=== PATIENT | female | born 1960 ===

== ENCOUNTER 2017-06-01 18:28 | Observation (INO) | payer OTHER ==
--- NOTE | 2017-06-01 18:43 | ED PDOC ---
Arrival/HPI - General Time Seen by Provider: 06/01/17 18:34 Historian: Patient - History of Present Illness Narrative History of Present Illness (Text): 06/01/17 18:41 56 y/o female, pmh including htn, psychiatric history including anxiety, nkda, post menopausal, c/o feeling chest pain/palpitation/difficulty breathing and anxious x 45 minutes. Pt. stated that she was at home watching TV, suddenly feeling anxious with chest pain/palpitation and very nervous, called the ambulance and came to the ER for evaluation. Pt. has no night sweat, no rash, no dizziness, no change in vision, no numbness or tingling, no palpitation, no other medical or psychological complaints. Past Medical History - Provider Review Nursing Documentation Reviewed: Yes Family/Social History - Physician Review Nursing Documentation Reviewed: Yes Family/Social History: Unknown Family HX Allergies/Home Meds Allergies/Adverse Reactions: Allergies No Known Allergies Allergy (Verified 06/01/17 18:47) Home Medications: Home Meds Medication Instructions Recorded Confirmed Losartan [Cozaar] 25 mg PO DAILY 06/01/17 06/01/17 Review of Systems - Review of Systems Constitutional: absent: Fatigue, Fevers Eyes: absent: Vision Changes ENT: absent: Hearing Changes Respiratory: absent: SOB, Cough Cardiovascular: absent: Chest Pain Gastrointestinal: absent: Abdominal Pain, Nausea, Vomiting Musculoskeletal: absent: Arthralgias, Myalgias Skin: absent: Rash, Pruritis Psychiatric: Anxiety. absent: Depression, Suicidal Ideation Physical Exam Vital Signs Temp Pulse Resp BP Pulse Ox 06/01/17 21:06 71 18 126/72 100 06/01/17 20:19 87 19 114/77 100 06/01/17 18:45 98.3 F 104 H 15 146/87 100 - Systems Exam Head: Present: Atraumatic, Normocephalic Pupils: Present: PERRL Extroacular Muscles: Present: EOMI Conjunctiva: Present: Normal Mouth: Present: Moist Mucous Membranes Neck: Present: Normal Range of Motion Respiratory/Chest: Present: Clear to Auscultation, Good Air Exchange. No: Respiratory Distress, Accessory Muscle Use Cardiovascular: Present: Regular Rate and Rhythm, Normal S1, S2. No: Murmurs Abdomen: Present: Normal Bowel Sounds. No: Tenderness, Distention, Peritoneal Signs Back: Present: Normal Inspection Upper Extremity: Present: Normal Inspection. No: Cyanosis, Edema Lower Extremity: Present: Normal Inspection. No: Edema Neurological: Present: GCS=15, Speech Normal, Motor Func Grossly Intact, Gait Normal, Memory Normal Skin: Present: Warm, Dry, Normal Color. No: Rashes Psychiatric: Present: Alert, Oriented x 3, Anxious Medical Decision Making ED Course and Treatment: 06/01/17 18:43 -labs/thyroid -ekg -chest xray -IVF/ativan/aspirin -Observe and reassess 06/01/17 20:14 -HEART score of 4 (moderate) -EKG: NSR @ 90 BPM, no ST elevation or depression, T wave inversion noted on the lead II/III/aVF, no previous ekg available for comparison. -Chest xray wet read show no active disease -Labs show no acute findings except K+ 3.4 (potassium chloride 20meq po ordered) . -Thyroid profile show no signs of thyroid storm. -Troponin 1st set is negative -I can not rule out if this is anxiety vs. ACS as she has HEART score of 4 with risk factors along with ACS presenting signs/symptoms, she will need to be admitted for 24 hours troponin set. -I discussed with the patient and she agreed on the observation over night. -Dr. Dennis paged. 06/01/17 20:23 -I spoke to Dr. Merlos, covering for Dr. Dennis, discussed about the case/labs /radiology result, agreed to observation for [address] Dennis's service. -I discussed with Dr. Morales about the case/labs/radiology result, he will put in the observation tele order for the patient. - Lab Interpretations Lab Results: 06/01/17 19:20 06/01/17 19:20 Lab Results 06/01/17 19:20: WBC 5.8, RBC 4.94, Hgb 14.3, Hct 42.2, MCV 85.4, MCH 28.9, MCHC 33.9, RDW 13.1, Plt Count 193, MPV 11.7 H, Gran % 52.5, Lymph % (Auto) 37.6 H, Kershaw % (Auto) 8.9 H, Eos % (Auto) 0.7 L, Baso % (Auto) 0.3, Gran # 3.05, Lymph # 2.2, Kershaw # 0.5, Eos # 0.0, Baso # 0.02 06/01/17 19:20: Free T4 0.68 L, TSH 3rd Generation 2.29 06/01/17 19:20: Sodium 141, Potassium 3.4 L, Chloride 100, Carbon Dioxide 27, Anion Gap 17, BUN 11, Creatinine 0.9, Est GFR ( Amer) > 60, Est GFR (Non- Af Amer) > 60, Random Glucose 144 H, Calcium 9.5, Magnesium 2.0, Total Bilirubin 0.4, AST 29, ALT 27, Alkaline Phosphatase 74, Lactate Dehydrogenase 467, Total Creatine Kinase 85, Troponin I < 0.01, Total Protein 8.4 H, Albumin 4.6, Globulin 3.9, Albumin/Globulin Ratio 1.2 Interpretation: Abnormal lab values (K+ 3.4) - RAD Interpretation Radiology Orders: 06/01/17 18:54 CHEST PORTABLE [RAD] Stat no active disease Photoengraving Proofer: Radiologist - EKG Interpretation EKG Interpretation (Text): 06/01/17 19:12 -EKG: NSR @ 90 BPM, no ST elevation or depression, T wave inversion noted on the lead II/III/aVF, no previous ekg available for comparison. Interpreted by ED Physician: Yes Type: 12 lead EKG Comparison: No previous EKG avail. - Medication Orders Current Medication Orders: Alprazolam (Xanax) 0.25 mg PO TID PRN PRN Reason: Anxiety Stop: 06/09/17 07:41 Discontinued Medications Alprazolam (Xanax) 0.25 mg PO TID PRN; Protocol PRN Reason: Anxiety Aspirin (Aspirin) 325 mg PO STAT STA Stop: 06/01/17 19:19 Last Admin: 06/01/17 19:15 Dose: 325 mg Sodium Chloride (Sodium Chloride 0.9%) 1,000 mls @ 999 mls/hr IV .Q1H1M STA Stop: 06/01/17 20:15 Last Admin: 06/01/17 19:58 Dose: 999 mls/hr eMAR Start Stop Document 06/01/17 19:58 RD (Rec: 06/01/17 19:58 RD [id number]) Intravenous Solution Start Date 06/01/17 Start Time 19:58 End Date 06/01/17 End time 20:58 Total Infusion Time 60 Lorazepam (Ativan) 1 mg IVP ONCE ONE PRN Reason: Protocol Stop: 06/01/17 19:16 Last Admin: 06/01/17 19:35 Dose: 1 mg IVP Administration Document 06/01/17 19:35 RD (Rec: 06/01/17 19:59 RD [id number]) Charges for Administration # of IVP Administrations 1 Re-Assess: Reassess Psych Meds Document 06/01/17 20:05 FDE (Rec: 06/01/17 22:46 FDE [facility] [id number]) Reassess Psych Med Effective Potassium Chloride (K-Dur 20 Meq Er Tab) 20 meq PO STAT STA Stop: 06/01/17 19:52 Last Admin: 06/01/17 20:28 Dose: 20 meq Potassium Chloride (K-Dur 20 Meq Er Tab) 20 meq PO ONCE ONE Stop: 06/02/17 07:37 - PA / [employer] / Resident Statement MD/DO has reviewed & agrees with the documentation as recorded. Disposition/Present on Arrival - Present on Arrival Any Indicators Present on Arrival: No History of DVT/PE: No History of Uncontrolled Diabetes: No Urinary Catheter: No History of Decub. Ulcer: No - Disposition Have Diagnosis and Disposition been Completed?: Yes Diagnosis: Chest pain, Abnormal EKG Disposition: HOSPITALIZED Disposition Time: 20:15 Patient Plan: Observation, Telemetry Patient Problems: Current Active Problems Problem Status Onset Chest pain Acute Abnormal EKG Acute Condition: STABLE
[2017-06-01] MEDS ORDERED: Sodium Chloride 0.9% 1,000 ML IV STA (19:15)
[2017-06-01 19:37] LABS: BASO # 0.02 K/mm3 (0.0-2.0); BASO % 0.3 % (0.0-3.0); EOS % 0.7 % (1.5-5.0); GRAN # 3.05 (1.4-6.5); GRAN % 52.5 % (50.0-68.0); HEMATOCRIT 42.2 % (36.0-48.0); LYMPH # 2.2 (1.2-3.4); LYMPH % 37.6 % (22.0-35.0); MEAN CELL VOLUME 85.4 fl (80.0-105.0); MEAN CORPUSCULAR HEMOGLOBIN 28.9 pg (25.0-35.0); MEAN CORPUSCULAR HGB CONC 33.9 g/dl (31.0-37.0); MEAN PLATELET VOLUME 11.7 fl (7.0-11.0); MONO # 0.5 (0.1-0.6); MONO % 8.9 % (1.0-6.0); RED CELL DISTRIBUTION WIDTH 13.1 % (11.5-14.5); WHITE BLOOD COUNT 5.8 10^3/ul (4.5-11.0)
[2017-06-01 19:47] LABS: ALB/GLOB RATIO 1.2 (1.1-1.8); ALKALINE PHOSPHATASE 74 U/L (38-126); ALT/SGPT 27 U/L (7-56); AST/SGOT 29 U/L (14-36); BILIRUBIN,TOTAL 0.4 mg/dL (0.2-1.3); BLOOD UREA NITROGEN 11 mg/dL (7-21); CALCIUM 9.5 mg/dL (8.4-10.5); CARBON DIOXIDE 27 mmol/L (21-33); CHLORIDE 100 mmol/L (98-107); GFR AFRICAN-AMERICAN > 60; GLUCOSE,RANDOM 144 mg/dL (70-110); POTASSIUM 3.4 mmol/L (3.6-5.0); SODIUM 141 mmol/L (132-148); TOTAL PROTEIN 8.4 g/dL (5.8-8.3)
[2017-06-01] MEDS ORDERED: Potassium Chloride 20 mEq ER Tab PO STA (19:51)
[2017-06-01 20:04] LABS: TROPONIN I < 0.01 ng/mL
[2017-06-01 20:13] LABS: FREE T4 0.68 ng/dL (0.78-2.19)
[2017-06-01 20:27] LABS: THYROID STIMULATING HORMONE 2.29 mIU/mL (0.46-4.68)
[2017-06-01 21:50] VITALS: BMI 20.1
[2017-06-02 05:38] VITALS: O2SAT 100
[2017-06-02] MEDS ORDERED: Potassium Chloride 20 mEq ER Tab PO ONE (07:36)
--- NOTE | 2017-06-02 07:59 | RAD ---
HISTORY: medical clearance COMPARISON: None. FINDINGS: LUNGS: No active pulmonary disease. PLEURA: No significant pleural effusion identified, no pneumothorax apparent. CARDIOVASCULAR: Normal. OSSEOUS STRUCTURES: No significant abnormalities. VISUALIZED UPPER ABDOMEN: Normal. OTHER FINDINGS: None. IMPRESSION: No active disease. Concordant results with the preliminary interpretation rendered by the emergency department physician procedure.
--- NOTE | 2017-06-02 14:03 | CARD ---
APPROVED REPORT EKG Measurement Heart [id number] <Conclusion> Normal sinus rhythm ST & T wave abnormality, consider inferior ischemia Abnormal ECG
--- NOTE | 2017-06-02 14:08 | HP ---
HISTORY OF PRESENT ILLNESS: I saw her this morning in her bed. She slept fairly well. She is very anxious. She is a 56-year-old female who presents to the emergency room at 45 minutes of having difficulty breathing and anxiety with palpitations and chest pain. She was watching TV at home, suddenly the feeling came upon her, anxiety with chest pain, palpitations, very nervous, called the ambulance, came to the emergency room. No night sweats. No rashes, no dizziness. No vision changes. PAST MEDICAL HISTORY: Includes hypertension, anxiety. She has had this before, but ignored. At this time ,she is very worried. ALLERGIES: SHE HAS NO KNOWN DRUG ALLERGIES. FAMILY HISTORY: She has unknown family history. MEDICATIONS: She takes Cozaar for possible hypertension. REVIEW OF SYSTEMS: No acute vision or hearing changes. No sore throat. She is not tired. No neck pain. There is no shortness of breath or cough. There is chest pain and palpitations. No abdominal pain, nausea, vomiting, constipation or diarrhea. No arthralgias. No back pain or leg pain. No rashes or ulcers. She is very anxious. Not depressed or suicidal. PHYSICAL EXAMINATION: VITAL SIGNS: She has 98.3 temperature, pulse is high as 104, now 87, breathing was high as 19, now down to 15, 146/87 blood pressure, 100% O2 sat. GENERAL: She is a 56-year-old female who is at this time very pleasant, calm, slept well. HEENT: Head is atraumatic and normocephalic. Extraocular muscles are intact. Pupils equally reactive to light and accommodation. Throat is moist. NECK: Supple. Thyroid midline. No palpable appreciable lymphadenopathy. HEART: Regular rate, normal S1 and S2. LUNGS: Clear to auscultation. Good air exchange. No wheezes. No rhonchi. No rales. ABDOMEN: Soft, nontender. Positive bowel sounds. No guarding. No rebound. No CVA tenderness. EXTREMITIES: No edema. NEUROLOGIC: GCS is 15. Speech is normal. Cranial nerves II through XII are grossly intact. She moves all 4 extremities, she could walk well. SKIN: Intact and I could see no rashes or ulcers. NEUROLOGIC: Alert and oriented x3 and very calm at this time. DIAGNOSTIC DATA: EKG showed normal sinus rhythm at 90 beats per minute. No ST elevation or depression. T-wave inversion. Chest x-ray shows no active disease. LABORATORY DATA: On lab tests, she has 141 sodium, potassium is 3.4. I replaced potassium. BUN 11, creatinine 0.9, GFR is greater than 60, sugar is 144, calcium is 9.5, magnesium is 2, total bilirubin is 0.4, AST is 29, ALT is 27, alkaline phosphatase is 74, lactate dehydrogenase 467. Troponin 0.01, last when I ordered was stat troponin this morning, they will now continue it from the ER. Albumin is 4.6, TSH is 2.29. White count is 5.8, hemoglobin 14.3, hematocrit 42.2, platelets are 193. PLAN: She is here for chest pain, anxiety. I put her on some Xanax. Her blood pressures have all been low. I would not put back on her blood pressure pill at this time. Await until Cardiology wants to do. I am hoping to discharge her later. She is in observation and I am hoping to schedule an outpatient stress test, and we will follow up with primary care doctor. She is here for observation for chest pain and anxiety. Jesus Dennis DO MTDD
[2017-06-02 14:30] VITALS: BP 117/54; PULSE 83; RESP 20; TEMP 98.3
--- NOTE | 2017-06-02 19:18 | CON ---
CARDIOLOGY CONSULTATION DATE: 06/02/2017 HISTORY: The patient is a 56-year-old woman, who presents with atypical chest pain as well as dizziness. The patient's past medical history is free of cardiac disease. The patient does not smoke. Her cardiac risk factors include hypertension, no diabetes mellitus. SOCIAL HISTORY: The patient does not smoke. FAMILY HISTORY: There is no family history for cardiac disease. REVIEW OF SYSTEMS: A 14-point review of systems was reviewed in detail. There is no cardiac symptomatology noted. Her dizziness has resolved. PHYSICAL EXAM: VITAL SIGNS: Blood pressure varies from 125 to 135 systolic and heart rates in the 70s. NECK: Negative JVD. LUNGS: Without rales. HEART: Reveals S1, S2. EXTREMITIES: Without edema. EKG shows nonspecific ST-T depressions. The hemoglobin is 14.3. Troponins are negative x2. The glucose is 144. IMPRESSION: 1. Atypical chest pain. 2. No evidence for acute coronary syndrome. 3. Hypertension. 4. Dizziness. 5. Borderline diabetes mellitus. 6. Hypokalemia. PLAN: Given these findings, ____ troponins are negative, the patient is currently asymptomatic. We will bring the patient back for an outpatient stress test given her cardiac risk factors and her abnormal EKG. John Graham MD
== END 2017-06-02 14:40 | disposition home or self-care (01) ==
LOC: ED 18:28 → ERH 20:26 → 2RSO 21:28
PROVIDERS: ADMIT Family Medicine; ATTEND Family Medicine
DX: R07.89 Other chest pain (principal); R42 Dizziness and giddiness; I10 Essential (primary) hypertension; F41.9 Anxiety disorder, unspecified; E87.6 Hypokalemia; R73.03 Prediabetes; R94.31 Abnormal electrocardiogram [ECG] [EKG]
CPT/HCPCS: 36415; 71010; 80053; 82550; 83615; 83735; 84439; 84443; 84484; 85025; 93005; 96360; 96374; 99285; G0378; J2060; J7040

== ENCOUNTER 2018-08-01 10:11 | Observation (INO) | payer BC ==
[2018-08-01] MEDS ORDERED: Sodium Chloride 0.9% 1,000 ML IV STA (10:44)
[2018-08-01] MEDS ORDERED: Iohexol 240 (50 ml) ONE (10:51)
[2018-08-01 10:57] LABS: BASO # 0.01 K/mm3 (0.0-2.0); BASO % 0.1 % (0.0-3.0); EOS % 0.1 % (1.5-5.0); HEMOGLOBIN 13.5 g/dL (12.0-16.0); LYMPH # 1.7 (1.2-3.4); LYMPH % 17.5 % (22.0-35.0); MEAN CELL VOLUME 86.4 fl (80.0-105.0); MEAN CORPUSCULAR HEMOGLOBIN 28.6 pg (25.0-35.0); MEAN CORPUSCULAR HGB CONC 33.1 g/dl (31.0-37.0); MEAN PLATELET VOLUME 12.2 fl (7.0-11.0); MONO # 0.9 (0.1-0.6); MONO % 9.6 % (1.0-6.0); RBC 4.72 10^6/uL (3.5-6.1); RED CELL DISTRIBUTION WIDTH 13.2 % (11.5-14.5); WHITE BLOOD COUNT 9.6 10^3/uL (4.5-11.0)
[2018-08-01 10:58] LABS: URINE BILIRUBIN NEGATIVE (NEGATIVE); URINE BLOOD SMALL (NEGATIVE); URINE GLUCOSE (UA) NEGATIVE (NEGATIVE); URINE LEUKOCYTE ESTERASE MODERATE Leu/uL (NEGATIVE); URINE PROTEIN TRACE mg/dL (<30 mg/dL); URINE UROBILINOGEN 0.2 E.U./dL (<1 E.U./dL)
[2018-08-01 10:59] LABS: URINE APPEARANCE SL CLOUDY (CLEAR); URINE COLOR YELLOW (YELLOW)
--- NOTE | 2018-08-01 11:00 | ED PDOC ---
Arrival/HPI - General Chief Complaint: Abdominal Pain Time Seen by Provider: 08/01/18 10:12 Historian: Patient - History of Present Illness Narrative History of Present Illness (Text): 08/01/18 11:02 57-year-old female with a history of diverticulitis with abscess in 2016 presents today with a one-week history of left lower quadrant abdominal pain. Patient states she was seen by her GI specialist and was given milk of magnesia for constipation. She states she had a bowel movement yesterday but the left lower quadrant abdominal pain continues. Patient states she has a prescription from her GI specialist for a CAT scan of the abdomen and pelvis with po and IV contrast to rule out diverticulitis. Patient denies fevers or chills. No chest pain or shortness of breath. She is complaining of a cramping left lower quadrant abdominal pain that has been worsening over the past week. No medications have been taken for pain at home. Patient is also complaining of urinary frequency. No vomiting. No diarrhea. No other complaints Past Medical History - Provider Review Nursing Documentation Reviewed: Yes - Travel History Have you recently traveled outside [place] w/in the past 3 mons?: No - Infectious Disease Hx of Infectious Diseases: None - Reproductive Menopause: Yes - Cardiac Hx Hypertension: Yes - Pulmonary Hx Respiratory Disorders: No - Musculoskeletal/Rheumatological Hx Falls: No - Psychiatric Hx Anxiety: Yes Hx Substance Use: No - Surgical History Hx Hysterectomy: Yes - Anesthesia Hx Anesthesia Reactions: No Family/Social History - Physician Review Nursing Documentation Reviewed: Yes Family/Social History: Unknown Family HX Smoking Status: Former Smoker Hx Alcohol Use: No Hx Substance Use: No Allergies/Home Meds Allergies/Adverse Reactions: Allergies No Known Allergies Allergy (Verified 08/01/18 10:18) Home Medications: Home Meds Medication Instructions Recorded Confirmed Clonazepam [Klonopin] 0.25 mg PO DAILY PRN 08/01/18 08/01/18 amLODIPine [Norvasc] 2.5 mg PO DAILY 08/01/18 08/01/18 hydroCHLOROthiazide [Microzide] 12.5 mg PO WMHS 08/01/18 08/01/18 Review of Systems - Review of Systems Constitutional: absent: Fatigue, Fevers Respiratory: absent: SOB, Cough Cardiovascular: absent: Chest Pain, Palpitations Gastrointestinal: Abdominal Pain. absent: Diarrhea, Nausea, Vomiting Genitourinary Female: Frequency. absent: Dysuria, Hematuria Musculoskeletal: absent: Arthralgias, Back Pain, Neck Pain Skin: absent: Rash, Pruritis Neurological: absent: Headache, Dizziness Psychiatric: absent: Anxiety, Depression Physical Exam Vital Signs Reviewed: Yes Vital Signs Temp Pulse Resp BP Pulse Ox 08/01/18 10:15 97.9 F 76 18 116/73 99 Temperature: Afebrile Blood Pressure: Normal Pulse: Regular Respiratory Rate: Normal Appearance: Positive for: Well-Appearing, Non-Toxic, Comfortable Pain Distress: None Mental Status: Positive for: Alert and Oriented X 3 - Systems Exam Head: Present: Atraumatic Mouth: Present: Moist Mucous Membranes Neck: Present: Normal Range of Motion Respiratory/Chest: Present: Clear to Auscultation, Good Air Exchange. No: Respiratory Distress, Accessory Muscle Use Cardiovascular: Present: Regular Rate and Rhythm, Normal S1, S2. No: Murmurs Abdomen: Present: Tenderness (llq and suprapubic tenderness). No: Distention, Rebound, Guarding Back: Present: Normal Inspection. No: CVA Tenderness, Midline Tenderness, Paraspinal Tenderness Upper Extremity: Present: Normal ROM Lower Extremity: Present: Normal ROM Neurological: Present: GCS=15, Speech Normal Skin: Present: Warm, Dry, Normal Color. No: Rashes Psychiatric: Present: Alert, Oriented x 3 Medical Decision Making ED Course and Treatment: 08/01/18 11:57 Patient is nontoxic well appearing with stable vital signs presenting with llq abdominal pain CBC wnl CMP wnl Lipase wnl Urinalysis : + leukocytes EKG shows normal sinus rhythm at 69 bpm normal axis no ST elevations QTC 402 CAT scan: FINDINGS: LOWER THORAX: Unremarkable. LIVER: Unremarkable. No gross lesion or ductal dilatation. GALLBLADDER AND BILE DUCTS: Unremarkable. PANCREAS: Unremarkable. No gross lesion or ductal dilatation. SPLEEN: Unremarkable. ADRENALS: Unremarkable. No mass. KIDNEYS AND URETERS: Unremarkable. No hydronephrosis. No solid mass. VASCULATURE: Unremarkable. No aortic aneurysm. No aortic atherosclerotic calcification or mural plaque present. BOWEL: There is severe mural thickening in the sigmoid colon with surrounding inflammatory changes consistent with acute diverticulitis. APPENDIX: Normal appendix. PERITONEUM: Unremarkable. No free fluid. No free air. LYMPH NODES: Unremarkable. No enlarged lymph nodes. BLADDER: Unremarkable. REPRODUCTIVE: Unremarkable. BONES: No acute fracture. OTHER FINDINGS: None. IMPRESSION: There is severe mural thickening in the sigmoid colon with surrounding inflammatory changes consistent with acute diverticulitis. Patient reassessment: pt feeling better. still with pain. requesting home anxiety medication blood cultures pending pt started on rocephin and flagyl Discussed all results with patient in depth case discussed with dr. Francisco; accepts observational status admission Impression: diverticulitis, UTI admit med/surg 08/01/18 16:51 - RAD Interpretation Radiology Orders: 08/01/18 10:43 ABD PELVIS PO & IV CONTRAST [CT] Stat - Medication Orders Current Medication Orders: Sodium Chloride (Sodium Chloride 0.9%) 1,000 mls @ 999 mls/hr IV .Q1H1M STA Stop: 08/01/18 11:44 Ketorolac Tromethamine (Toradol) 30 mg IVP STAT STA Stop: 08/01/18 10:45 Disposition/Present on Arrival - Present on Arrival Any Indicators Present on Arrival: No History of DVT/PE: No History of Uncontrolled Diabetes: No Urinary Catheter: No History of Decub. Ulcer: No History Surgical Site Infection Following: None - Disposition Have Diagnosis and Disposition been Completed?: Yes Diagnosis: Diverticulitis Disposition: HOSPITALIZED Disposition Time: 14:00 Patient Plan: Observation Patient Problems: Current Active Problems Problem Status Onset Diverticulitis Acute Condition: FAIR
[2018-08-01 11:07] LABS: ALBUMIN 4.1 g/dL (3.0-4.8); ALT/SGPT 7 U/L (7-56); AST/SGOT 20 U/L (14-36); BLOOD UREA NITROGEN 9 mg/dL (7-21); CALCIUM 9.4 mg/dL (8.4-10.5); GFR NON-AFRICAN AMERICAN > 60; LIPASE 57 U/L (23-300)
[2018-08-01 11:40] LABS: URINE AMORPHOUS SEDIMENT FEW /hpf; URINE BACTERIA MANY /hpf; URINE WBC 20 - 25 /hpf (0-6)
[2018-08-01] MEDS ORDERED: Iohexol 350 MG/100 ML VIAL ONE (13:26)
--- NOTE | 2018-08-01 14:16 | CT ---
Date of service: 08/01/2018 PROCEDURE: CT Abdomen and Pelvis with contrast HISTORY: LLQ pain. hx of diverticulitis with abscess (2016) COMPARISON: None. TECHNIQUE: Contrast dose: 100 cc of Omni 350 Radiation dose: Total exam DLP = 225.04 mGy-cm. This CT exam was performed using one or more of the following dose reduction techniques: Automated exposure control, adjustment of the mA and/or kV according to patient size, and/or use of iterative reconstruction technique. FINDINGS: LOWER THORAX: Unremarkable. LIVER: Unremarkable. No gross lesion or ductal dilatation. GALLBLADDER AND BILE DUCTS: Unremarkable. PANCREAS: Unremarkable. No gross lesion or ductal dilatation. SPLEEN: Unremarkable. ADRENALS: Unremarkable. No mass. KIDNEYS AND URETERS: Unremarkable. No hydronephrosis. No solid mass. VASCULATURE: Unremarkable. No aortic aneurysm. No aortic atherosclerotic calcification or mural plaque present. BOWEL: There is severe mural thickening in the sigmoid colon with surrounding inflammatory changes consistent with acute diverticulitis. APPENDIX: Normal appendix. PERITONEUM: Unremarkable. No free fluid. No free air. LYMPH NODES: Unremarkable. No enlarged lymph nodes. BLADDER: Unremarkable. REPRODUCTIVE: Unremarkable. BONES: No acute fracture. OTHER FINDINGS: None. IMPRESSION: There is severe mural thickening in the sigmoid colon with surrounding inflammatory changes consistent with acute diverticulitis.
[2018-08-01] MEDS ORDERED: metroNIDAZOLE IV 500 mg/100 ml 500 MG/100 ML BAG IVPB STA (14:23)
[2018-08-01] MEDS ORDERED: cefTRIAXone 1 gm 1 GM/100 ML BAG IVPB STA (14:23)
[2018-08-01] MEDS ORDERED: Morphine 2 mg/ml ISec IVP PRN (15:18)
[2018-08-01 18:00] VITALS: BMI 22.4
[2018-08-01] MEDS ORDERED: Influenza Vaccine 60 mcg/0.5 mL SYR (4YR UP) IM ONE (18:01)
[2018-08-01] MEDS ORDERED: Pneumococcal 23-Valent Vaccine IM ONE (18:01)
[2018-08-01] MEDS: Sodium Chloride 0.9% 1,000 ML IV SCH (18:17)
--- NOTE | 2018-08-01 20:53 | CP.PCM.HP ---
<JuliCosta - Last Filed: 08/02/18 06:44> History of Present Illness - History of Present Illness History of Present Illness: Medicine H/P: Juli, PGY-2 Chief Complaint: Abdominal pain 57 F with pertinent medical history of diverticula presents with 1.5 day of sharp, L sided abdominal pain associated with nausea, with no alleviating/exacerbating features. Patient states that she drank coffee yesterday morning and after that started experiencing the pain and has not been able to tolerate a PO diet since. She had a colonoscopy 2 years ago which demonstrated diverticula but no polyps. Patient denies any chest pain, shortness of breath, hematochezia, hematemesis. Review of Systems: 12 point ROS obtained and negative except as per HPI Surgical Hx: Hysterectomy Medical Hx: Diverticula, HTN, Anxiety Allergies: NKDA Social Hx: Denies Tobacco, Illicits; +Social EtOH Home Meds: HCTZ 12.5 MWF; Norvasc 2.5; Alprazolam .5 daily PRN Family Hx: ?Ovarian cancer in her sister Present on Admission - Present on Admission Any Indicators Present on Admission: No Past Patient History - Infectious Disease Hx of Infectious Diseases: None - Past Social History Smoking Status: Former Smoker - CARDIAC Hx Hypertension: Yes - PULMONARY Hx Respiratory Disorders: No - NEUROLOGICAL Hx Neurological Disorder: No - HEENT Hx HEENT Problems: Yes (eyeglasses) - RENAL Hx Chronic Kidney Disease: No - ENDOCRINE/METABOLIC Hx Endocrine Disorders: No - HEMATOLOGICAL/ONCOLOGICAL Hx Blood Disorders: No - INTEGUMENTARY Hx Dermatological Problems: No - MUSCULOSKELETAL/RHEUMATOLOGICAL Hx Falls: No - GASTROINTESTINAL Hx Gastrointestinal Disorders: Yes Hx Diverticulitis: Yes (w/abcess 2016) - GENITOURINARY/GYNECOLOGICAL Hx Genitourinary Disorders: Yes Other/Comment: partial hyst, fibroids removed, mammo 06/12/2018 - PSYCHIATRIC Hx Anxiety: Yes Hx Substance Use: No - SURGICAL HISTORY Hx Hysterectomy: Yes - ANESTHESIA Hx Anesthesia Reactions: No Meds Allergies/Adverse Reactions: Allergies Allergy/AdvReac Type Severity Reaction Status Date / Time No Known Allergies Allergy Verified 08/01/18 10:18 Physical Exam - Constitutional Appears: Well - Head Exam Head Exam: ATRAUMATIC, NORMAL INSPECTION, NORMOCEPHALIC - Eye Exam Eye Exam: EOMI, Normal appearance, PERRL Pupil Exam: NORMAL ACCOMODATION, PERRL - ENT Exam ENT Exam: Mucous Membranes Moist, Normal Exam - Neck Exam Neck exam: Positive for: Normal Inspection - Respiratory Exam Respiratory Exam: Clear to Auscultation Bilateral, NORMAL BREATHING PATTERN - Cardiovascular Exam Cardiovascular Exam: REGULAR RHYTHM - GI/Abdominal Exam GI & Abdominal Exam: Normal Bowel Sounds, Soft. absent: Tenderness - Extremities Exam Extremities exam: Positive for: normal inspection - Back Exam Back exam: NORMAL INSPECTION - Neurological Exam Neurological exam: Alert, CN II-XII Intact, Normal Gait, Oriented x3, Reflexes Normal - Psychiatric Exam Psychiatric exam: Normal Affect, Normal Mood - Skin Skin Exam: Dry, Intact, Normal Color, Warm Results - Vital Signs Recent Vital Signs: Last Vital Signs Temp 98.5 F 08/01/18 15:38 Pulse 73 08/01/18 17:48 Resp 16 08/01/18 17:48 BP 118/68 08/01/18 15:38 Pulse Ox 99 08/01/18 15:38 - Labs Result Diagrams: 08/01/18 10:42 08/01/18 10:42 Labs: Laboratory Results - last 24 hr 08/01/18 08/01/18 08/01/18 10:42 10:42 10:42 WBC 9.6 RBC 4.72 Hgb 13.5 Hct 40.8 MCV 86.4 MCH 28.6 MCHC 33.1 RDW 13.2 Plt Count 209 MPV 12.2 H Neut % (Auto) 72.7 H Lymph % (Auto) 17.5 L [place] % (Auto) 9.6 H Eos % (Auto) 0.1 L Baso % (Auto) 0.1 Lymph # (Auto) 1.7 [place] # (Auto) 0.9 H Eos # (Auto) 0.0 Baso # (Auto) 0.01 Absolute Neuts (auto) 6.99 H Sodium 138 Potassium 4.2 Chloride 100 Carbon Dioxide 31 Anion Gap 12 BUN 9 Creatinine 0.7 Est GFR ( Amer) > 60 Est GFR (Non-Af Amer) > 60 Random Glucose 113 H Calcium 9.4 Total Bilirubin 0.5 AST 20 ALT 7 Alkaline Phosphatase 76 Total Protein 8.1 Albumin 4.1 Globulin 4.0 Albumin/Globulin Ratio 1.0 L Lipase 57 Procalcitonin Urine Color Yellow Urine Appearance Sl cloudy Urine pH 7.0 Ur Specific [place] 1.025 Urine Protein Trace H Urine Glucose (UA) Negative Urine Ketones Negative Urine Blood Small H Urine Nitrate Negative Urine Bilirubin Negative Urine Urobilinogen 0.2 Ur Leukocyte Esterase Moderate H Urine RBC 5 - 10 H Urine WBC 20 - 25 H Ur Epithelial Cells 6 - 8 H Amorphous Sediment Few Urine Bacteria Many Urine Other Uyeast 08/01/18 10:42 WBC RBC Hgb Hct MCV MCH MCHC RDW Plt Count MPV Neut % (Auto) Lymph % (Auto) [place] % (Auto) Eos % (Auto) Baso % (Auto) Lymph # (Auto) [place] # (Auto) Eos # (Auto) Baso # (Auto) Absolute Neuts (auto) Sodium Potassium Chloride Carbon Dioxide Anion Gap BUN Creatinine Est GFR ( Amer) Est GFR (Non-Af Amer) Random Glucose Calcium Total Bilirubin AST ALT Alkaline Phosphatase Total Protein Albumin Globulin Albumin/Globulin Ratio Lipase Procalcitonin 0.08 L Urine Color Urine Appearance Urine pH Ur Specific [place] Urine Protein Urine Glucose (UA) Urine Ketones Urine Blood Urine Nitrate Urine Bilirubin Urine Urobilinogen Ur Leukocyte Esterase Urine RBC Urine WBC Ur Epithelial Cells Amorphous Sediment Urine Bacteria Urine Other Assessment & Plan - Assessment and Plan (Free Text) Assessment: 57 F with pertinent medical history of diverticula presents with sigmoid diverticulitis. No SIRS criteria noted. HTN S/p Hysterectomy Anxiety Plan Sigmoid Diverticulitis - Blood cultures - Morphine 1 q6 PRN; NS @ 100 mls/hr; Rocephin; Flagyl - Strict NPO Asymptomatic UTI - U Cx ordered by ED - Rocephin will cover Chronic HTN - Hold po home meds - Hydralazine q6 PRN with holding parameters Anxiety - Hold po home meds - Patient takes .25 Clonazepam at home Prophylaxis - SCD/Protonix IVP <MarixaasareiAjantha - Last Filed: 08/02/18 15:49> Results - Vital Signs Recent Vital Signs: Last Vital Signs Temp 98.7 F 08/02/18 14:00 Pulse 84 08/02/18 14:00 Resp 20 08/02/18 14:00 BP 112/61 08/02/18 14:00 Pulse Ox 99 08/02/18 14:00 - Labs Result Diagrams: 08/02/18 07:00 08/02/18 07:00 Labs: Laboratory Results - last 24 hr 08/01/18 08/02/18 08/02/18 10:42 07:00 07:00 WBC 4.0 L D RBC 3.99 Hgb 10.9 L D Hct 34.3 L MCV 86.0 MCH 27.3 MCHC 31.8 RDW 13.2 Plt Count 158 MPV 11.8 H Neut % (Auto) 61.9 Lymph % (Auto) 29.5 [place] % (Auto) 7.7 H Eos % (Auto) 0.7 L Baso % (Auto) 0.2 Lymph # (Auto) 1.2 [place] # (Auto) 0.3 Eos # (Auto) 0.0 Baso # (Auto) 0.01 Absolute Neuts (auto) 2.50 Sodium 139 Potassium 3.7 Chloride 108 H Carbon Dioxide 22 Anion Gap 13 BUN 12 Creatinine 0.7 Est GFR ( Amer) > 60 Est GFR (Non-Af Amer) > 60 Random Glucose 70 Calcium 8.5 Phosphorus 4.1 Magnesium 2.1 Total Bilirubin 0.4 AST 18 ALT 15 Alkaline Phosphatase 67 Total Protein 6.8 Albumin 3.3 Globulin 3.4 Albumin/Globulin Ratio 1.0 L Procalcitonin 0.08 L Attending/Attestation - Attestation I have personally seen and examined this patient.: Yes I have fully participated in the care of the patient.: Yes I have reviewed all pertinent clinical information: Yes Notes (Text): 08/02/18 15:46 Attending note; Patient seen and examined with resident in ER. Patient's family by the bedside. Patient is a 57 year old female admitted with left lower quadrant pain. 1. Acute sigmoid diverticulitis; CT scan of abdomen and pelvis showed severely mural thickening of the sigmoid colon. Nothing by mouth. Started on IV fluids. On IV Rocephin and Flagyl. GI prophylaxis with Protonix. Morphine for pain control. 2. Hypertension; continue IV hydralazine when necessary. Upon discharge the patient will follow-up with PMD Dr. Matthews. Patient follows up with GI .
[2018-08-01] MEDS: metroNIDAZOLE IV 500 mg/100 ml 500 MG/100 ML BAG IVPB SCH (21:15)
[2018-08-02] MEDS: metroNIDAZOLE IV 500 mg/100 ml 500 MG/100 ML BAG IVPB SCH ×3 (05:21→21:38)
[2018-08-02 07:48] LABS: BASO # 0.01 K/mm3 (0.0-2.0); BASO % 0.2 % (0.0-3.0); EOS % 0.7 % (1.5-5.0); LYMPH # 1.2 (1.2-3.4); LYMPH % 29.5 % (22.0-35.0); MEAN CORPUSCULAR HEMOGLOBIN 27.3 pg (25.0-35.0); MEAN CORPUSCULAR HGB CONC 31.8 g/dl (31.0-37.0); MEAN PLATELET VOLUME 11.8 fl (7.0-11.0); MONO # 0.3 (0.1-0.6); MONO % 7.7 % (1.0-6.0); RBC 3.99 10^6/uL (3.5-6.1); RED CELL DISTRIBUTION WIDTH 13.2 % (11.5-14.5)
[2018-08-02] MEDS: Sodium Chloride 0.9% 1,000 ML IV SCH (07:51)
[2018-08-02 08:08] LABS: ALBUMIN 3.3 g/dL (3.0-4.8); ALT/SGPT 15 U/L (7-56); AST/SGOT 18 U/L (14-36); BLOOD UREA NITROGEN 12 mg/dL (7-21); CALCIUM 8.5 mg/dL (8.4-10.5); GFR NON-AFRICAN AMERICAN > 60
[2018-08-02 08:10] LABS: HEMOGLOBIN 10.9 g/dL (12.0-16.0)
[2018-08-02] MEDS ORDERED: Morphine 2 mg/ml ISec IVP PRN (10:08)
--- NOTE | 2018-08-02 14:40 | CP.PCM.PN ---
<Pb Cage - Last Filed: 08/02/18 14:35> Subjective - Date & Time of Evaluation Date of Evaluation: 08/02/18 Time of Evaluation: 12:00 - Subjective Subjective: INTERNAL MEDICINE PROGRESS NOTE FOR DR. DAMIEN Cage PGY1 Pt seen and examined at bedside this am. No acute events overnight. Reports improvement in abdominal. No nausea/vomiting. Objective - Vital Signs/Intake and Output Vital Signs (last 24 hours): Temp Pulse Resp BP Pulse Ox 98.7 F 84 20 112/61 99 08/02/18 14:00 08/02/18 14:00 08/02/18 14:00 08/02/18 14:00 08/02/18 14:00 Intake and Output: 08/02/18 08/02/18 06:59 18:59 Intake Total 0 600 Output Total 1 Balance 0 599 - Medications Medications: Current Medications Acetaminophen (Tylenol 325mg Tab) 650 mg PO Q6H PRN PRN Reason: Fever >100.4 F Hydralazine HCl (Apresoline) 10 mg IVP Q6 PRN PRN Reason: Systolic > 160, DBP > 100 Metronidazole (Flagyl) 500 mg in 100 mls @ 100 mls/hr IVPB Q8 NELLIE; Protocol Last Admin: 08/02/18 05:21 Dose: 100 mls/hr Ceftriaxone Sodium (Rocephin 1 Gram Ivpb) 1 gm in 100 mls @ 100 mls/hr IVPB 1500 NELLIE; Protocol Sodium Chloride (Sodium Chloride 0.9%) 1,000 mls @ 100 mls/hr IV .Q10H NELLIE Last Admin: 08/02/18 07:51 Dose: 100 mls/hr Morphine Sulfate (Morphine) 1 mg IVP Q6H PRN PRN Reason: Pain, severe (8-10) Pantoprazole Sodium (Protonix Inj) 40 mg IVP DAILY NELLIE Last Admin: 08/02/18 09:52 Dose: 40 mg - Labs Labs: 08/02/18 07:00 08/02/18 07:00 - Constitutional Appears: Well - Head Exam Head Exam: ATRAUMATIC, NORMAL INSPECTION, NORMOCEPHALIC - Eye Exam Eye Exam: EOMI, Normal appearance, PERRL Pupil Exam: NORMAL ACCOMODATION, PERRL - ENT Exam ENT Exam: Mucous Membranes Moist, Normal Exam - Neck Exam Neck exam: Positive for: Normal Inspection - Respiratory Exam Respiratory Exam: Clear to Auscultation Bilateral, NORMAL BREATHING PATTERN - Cardiovascular Exam Cardiovascular Exam: REGULAR RHYTHM - GI/Abdominal Exam GI & Abdominal Exam: Normal Bowel Sounds, Soft. absent: Tenderness - Extremities Exam Extremities exam: Positive for: normal inspection - Back Exam Back exam: NORMAL INSPECTION - Neurological Exam Neurological exam: Alert, CN II-XII Intact, Normal Gait, Oriented x3, Reflexes Normal - Psychiatric Exam Psychiatric exam: Normal Affect, Normal Mood - Skin Skin Exam: Dry, Intact, Normal Color, Warm Assessment and Plan - Assessment and Plan (Free Text) Assessment: 57 F with PMH of diverticulosis, HTN presents with sigmoid diverticulitis Plan: Sigmoid Diverticulitis pt has been afebrile, no tachycardia, no leukocytosis continue rocephin/flagyl NS@100mls/hr morphine/tylenol prn pain start full liquid diet today, advance diet as tolerated f/u blood cultures CT Abd/Pelvis: "Severe mural thickening in the sigmoid colon with surround inflammatory changes consistent with acute diverticulitis" HTN hold anti-hypertensives as pt is BP is not elevated hydralazine prn DVT/GI Ppx: SCD/Protonix IVP Case seen, examined and discussed with attending physician, Dr. Damien Cage PGY1 <Kimberley Francisco - Last Filed: 08/02/18 15:51> Objective - Vital Signs/Intake and Output Vital Signs (last 24 hours): Temp Pulse Resp BP Pulse Ox 98.7 F 84 20 112/61 99 08/02/18 14:00 08/02/18 14:00 08/02/18 14:00 08/02/18 14:00 08/02/18 14:00 Intake and Output: 08/02/18 08/02/18 06:59 18:59 Intake Total 0 600 Output Total 1 Balance 0 599 - Medications Medications: Current Medications Acetaminophen (Tylenol 325mg Tab) 650 mg PO Q6H PRN PRN Reason: Fever >100.4 F Hydralazine HCl (Apresoline) 10 mg IVP Q6 PRN PRN Reason: Systolic > 160, DBP > 100 Metronidazole (Flagyl) 500 mg in 100 mls @ 100 mls/hr IVPB Q8 NELLIE; Protocol Last Admin: 08/02/18 05:21 Dose: 100 mls/hr Ceftriaxone Sodium (Rocephin 1 Gram Ivpb) 1 gm in 100 mls @ 100 mls/hr IVPB 1500 NELLIE; Protocol Sodium Chloride (Sodium Chloride 0.9%) 1,000 mls @ 100 mls/hr IV .Q10H [facility] Last Admin: 08/02/18 07:51 Dose: 100 mls/hr Morphine Sulfate (Morphine) 1 mg IVP Q6H PRN PRN Reason: Pain, severe (8-10) Pantoprazole Sodium (Protonix Inj) 40 mg IVP DAILY [facility] Last Admin: 08/02/18 09:52 Dose: 40 mg - Labs Labs: 08/02/18 07:00 08/02/18 07:00 Attending/Attestation - Attestation I have personally seen and examined this patient.: Yes I have fully participated in the care of the patient.: Yes I have reviewed all pertinent clinical information, including history, physical exam and plan: Yes Notes (Text): 08/02/18 15:50 Attending note; Patient seen and examined with resident. Patient's family by the bedside. Denies any abdominal pain. Denies any nausea, vomiting. wants to try liquid diet. Patient is a 57 year old female admitted with left lower quadrant pain. 1. Acute sigmoid diverticulitis; CT scan of abdomen and pelvis showed severely mural thickening of the sigmoid colon. Pain improved. Started on liquid diet. on IV fluids. On IV Rocephin and Flagyl. GI prophylaxis with Protonix. Morphine for pain control. 2. Hypertension; blood pressure is normal. Advance diet as tolerated. Upon discharge the patient will follow-up with PMD Dr. Matthews. Patient follows up with GI .
[2018-08-02] MEDS ORDERED: cefTRIAXone 1 gm 1 GM/100 ML BAG IVPB SCH (15:00)
--- NOTE | 2018-08-02 16:52 | CARD ---
APPROVED REPORT Date of service: 08/01/2018 EKG Measurement Heart [id number] <Conclusion> Normal sinus rhythm Left ventricular hypertrophy Borderline normal ECG
[2018-08-03] MEDS: metroNIDAZOLE IV 500 mg/100 ml 500 MG/100 ML BAG IVPB SCH (05:11)
[2018-08-03 07:46] LABS: EOS # 0.1 (0.0-0.7); EOS % 1.6 % (1.5-5.0); HEMOGLOBIN 10.8 g/dL (12.0-16.0); LYMPH # 1.1 (1.2-3.4); LYMPH % 34.9 % (22.0-35.0); MEAN CORPUSCULAR HEMOGLOBIN 27.4 pg (25.0-35.0); MEAN CORPUSCULAR HGB CONC 32.2 g/dl (31.0-37.0); MEAN PLATELET VOLUME 11.8 fl (7.0-11.0); MONO # 0.4 (0.1-0.6); RBC 3.94 10^6/uL (3.5-6.1); WHITE BLOOD COUNT 3.2 10^3/uL (4.5-11.0)
[2018-08-03 08:22] LABS: ALBUMIN 3.1 g/dL (3.0-4.8); ALT/SGPT 10 U/L (7-56); AST/SGOT 18 U/L (14-36); BLOOD UREA NITROGEN 10 mg/dL (7-21); CALCIUM 8.4 mg/dL (8.4-10.5); GFR NON-AFRICAN AMERICAN > 60
[2018-08-03 08:43] VITALS: BP 119/66; PULSE 59; RESP 18; TEMP 98.4; O2SAT 100
--- NOTE | 2018-08-03 16:04 | CP.PCM.DIS ---
Provider - Provider Date of Admission: 08/01/18 14:27 Attending physician: Melissa Cortes DO Primary care physician: Karol Time Spent in preparation of Discharge (in minutes): 35 Diagnosis - Discharge Diagnosis (1) Diverticulitis Status: Resolved Hospital Course - Lab Results Lab Results: Micro Results 08/01/18 15:30 Blood Blood Culture - Preliminary NO GROWTH AFTER 48 HOURS 08/01/18 15:15 Blood Blood Culture - Preliminary NO GROWTH AFTER 48 HOURS 08/01/18 12:30 Urine,Clean Catch Urine Culture - Final 50-100,000 CFU/ML. MULTIPLE SPECIES. SUGGEST REPEAT SPECIMEN. Most Recent Lab Values WBC 3.2 10^3/uL (4.5-11.0) L 08/03/18 07:00 RBC 3.94 10^6/uL (3.5-6.1) 08/03/18 07:00 Hgb 10.8 g/dL (12.0-16.0) L 08/03/18 07:00 Hct 33.5 % (36.0-48.0) L 08/03/18 07:00 MCV 85.0 fl (80.0-105.0) 08/03/18 07:00 MCH 27.4 pg (25.0-35.0) 08/03/18 07:00 MCHC 32.2 g/dl (31.0-37.0) 08/03/18 07:00 RDW 13.0 % (11.5-14.5) 08/03/18 07:00 Plt Count 156 10^3/uL (120.0-450.0) 08/03/18 07:00 MPV 11.8 fl (7.0-11.0) H 08/03/18 07:00 Neut % (Auto) 52.5 % (50.0-68.0) 08/03/18 07:00 Lymph % (Auto) 34.9 % (22.0-35.0) 08/03/18 07:00 [place] % (Auto) 11.0 % (1.0-6.0) H 08/03/18 07:00 Eos % (Auto) 1.6 % (1.5-5.0) 08/03/18 07:00 Baso % (Auto) 0.0 % (0.0-3.0) 08/03/18 07:00 Lymph # (Auto) 1.1 (1.2-3.4) L 08/03/18 07:00 [place] # (Auto) 0.4 (0.1-0.6) 08/03/18 07:00 Eos # (Auto) 0.1 (0.0-0.7) 08/03/18 07:00 Baso # (Auto) 0.00 K/mm3 (0.0-2.0) 08/03/18 07:00 Absolute Neuts (auto) 1.67 (1.4-6.5) 08/03/18 07:00 Sodium 138 mmol/L (132-148) 08/03/18 07:00 Potassium 3.8 mmol/L (3.6-5.0) 08/03/18 07:00 Chloride 105 mmol/L (98-107) 08/03/18 07:00 Carbon Dioxide 27 mmol/L (21-33) 08/03/18 07:00 Anion Gap 10 (10-20) 08/03/18 07:00 BUN 10 mg/dL (7-21) 08/03/18 07:00 Creatinine 0.7 mg/dl (0.7-1.2) 08/03/18 07:00 Est GFR ( Amer) > 60 08/03/18 07:00 Est GFR (Non-Af Amer) > 60 08/03/18 07:00 Random Glucose 94 mg/dL (70-110) 08/03/18 07:00 Calcium 8.4 mg/dL (8.4-10.5) 08/03/18 07:00 Phosphorus 3.2 mg/dL (2.5-4.5) 08/03/18 07:00 Magnesium 1.9 mg/dL (1.7-2.2) 08/03/18 07:00 Total Bilirubin 0.3 mg/dL (0.2-1.3) 08/03/18 07:00 AST 18 U/L (14-36) 08/03/18 07:00 ALT 10 U/L (7-56) 08/03/18 07:00 Alkaline Phosphatase 60 U/L (38-126) 08/03/18 07:00 Total Protein 6.3 g/dL (5.8-8.3) 08/03/18 07:00 Albumin 3.1 g/dL (3.0-4.8) 08/03/18 07:00 Globulin 3.2 gm/dL 08/03/18 07:00 Albumin/Globulin Ratio 1.0 (1.1-1.8) L 08/03/18 07:00 Lipase 57 U/L (23-300) 08/01/18 10:42 Procalcitonin 0.08 NG/ML (0.19-0.49) L 08/01/18 10:42 Urine Color Yellow (YELLOW) 08/01/18 10:42 Urine Appearance Sl cloudy (CLEAR) 08/01/18 10:42 Urine pH 7.0 (4.7-8.0) 08/01/18 10:42 Ur Specific [place] 1.025 (1.005-1.035) 08/01/18 10:42 Urine Protein Trace mg/dL (<30 mg/dL) H 08/01/18 10:42 Urine Glucose (UA) Negative mg/dL (NEGATIVE) 08/01/18 10:42 Urine Ketones Negative mg/dL (NEGATIVE) 08/01/18 10:42 Urine Blood Small (NEGATIVE) H 08/01/18 10:42 Urine Nitrate Negative (NEGATIVE) 08/01/18 10:42 Urine Bilirubin Negative (NEGATIVE) 08/01/18 10:42 Urine Urobilinogen 0.2 E.U./dL (<1 E.U./dL) 08/01/18 10:42 Ur Leukocyte Esterase Moderate Ramiro/uL (NEGATIVE) H 08/01/18 10:42 Urine RBC 5 - 10 /hpf (0-2) H 08/01/18 10:42 Urine WBC 20 - 25 /hpf (0-6) H 08/01/18 10:42 Ur Epithelial Cells 6 - 8 /hpf (0-5) H 08/01/18 10:42 Amorphous Sediment Few /hpf (NONE) 08/01/18 10:42 Urine Bacteria Many /hpf (NONE) 08/01/18 10:42 Urine Other Uyeast /hpf 08/01/18 10:42 - Hospital Course Hospital Course: Eze Arriaga DO, PGY-1 Hospitalist Discharge Summary for Dr. Steven Cortes On admission: 57 year old female with PMHx of diverticulosis, HTN, and anxiety [place] [facility] [place] complaining of 1.5 days of sharp, L sided abdominal pain with associated nausea. She denied modifying factors. Patient drank coffee the morning before presentation after which she began to experience the pain. Since then, she has not been able to tolerate a PO diet. She had a colonoscopy 2 years ago which demonstrated diverticulosis without polyps. Patient denied hematochezia, hematemesis, chest pain, and shortness of breath at the time of presentation. Hospital course: Patient was admitted for management of sigmoid diverticulitis. CT abdomen/pelvis revealed severe mural thickening in the sigmoid colon with surrounding inflammatory changes consistent with acute diverticulitis. Patient was started on 1mg morphine prn for pain control. Rocephin and flagyl were started and patient was made NPO and started on normal saline at 100 mls/hr. Urine culture revealed asymptomatic UTI which was also treated with Rocephin. Home hypertensive medications were held and patient was started on hydralazine q6 PRN. Home anxiety medication 0.25mg clonazepam was held. Patient was started on prophylactic SCD/protonix. During hospital course, patient remained afebrile without other SIRS. Blood cultures were negative x2. Diet was advanced to full liquid diet and then heart healthy diet. On discharge this AM, patient is resting comfortably in bed. She has been tolerating PO solids and liquids. She denies abdominal pain, nausea, vomiting. Patient was instructed to continue soft diet and follow up with PMD within 3-5 days of discharge. Discharge plan was discussed with patient. All questions were answered. Patient seen, examined, and discharge plan discussed with my attending Dr. Steven Cortes Patient seen, examined, and plan discussed with my attending Dr. Steven Arriaga D.O. IM Resident PGY-1 Discharge Exam - Head Exam Head Exam: ATRAUMATIC, NORMAL INSPECTION, NORMOCEPHALIC - Eye Exam Eye Exam: EOMI, PERRL - ENT Exam ENT Exam: Mucous Membranes Moist - Neck Exam Neck exam: Full Rom, Normal Inspection - Respiratory Exam Respiratory Exam: Clear to PA & Lateral, UNREMARKABLE. absent: Rales, Rhonchi, Wheezes - Cardiovascular Exam Cardiovascular Exam: REGULAR RHYTHM, RRR, +S1, +S2. absent: Diastolic murmur, Gallop, Rubs, Systolic Murmur - GI/Abdominal Exam GI & Abdominal Exam: Normal Bowel Sounds, Soft, Tenderness - Extremities Exam Extremities exam: full ROM, normal inspection - Back Exam Back exam: FULL ROM, NORMAL INSPECTION - Neurological Exam Neurological exam: Alert, Oriented x3 - Psychiatric Exam Psychiatric exam: Normal Affect, Normal Mood - Skin Skin Exam: Dry, Intact, Warm Discharge Plan - Discharge Medications Prescriptions: Ciprofloxacin [Cipro] 500 mg PO Q12H 5 Days #10 tab metroNIDAZOLE [Flagyl] 500 mg PO Q8H 5 Days #15 tab - Follow Up Plan Condition: FAIR Disposition: HOME/ ROUTINE Instructions: Acute Abdomen (Belly Pain), Adult (DC), Diverticulitis Additional Instructions: Please follow up with your primary care doctor, Dr. Roberson, within 3-5 days of discharge. Please continue a bland diet avoiding spicy/fatty foods for one week after discharge. We have started you on two antibiotics: 1. Ciprofloxacin 500 mg, please take this every 12 hours for the next five day, please take with food. Please avoid strenuous exercise while taking this medication as it may cause tendon rupture with strenuous exercise. 2. Flagyl 500 mg, please take this every 8 hours for the next five days, do no drink alcohol with this medication as it can make you very ill. We have given you a note excusing you from work until . Please follow up with Dr. Roberson if you feel you need to be home from work longer. Please continue your home blood pressure medications as previously prescribed by Dr. Roberson. If any of your symptoms return or worsen, please present to the nearest ED. Referrals: Dario Roberson [Family Provider] -
== END 2018-08-03 13:52 | disposition home or self-care (01) ==
LOC: ED 10:11 → ERH 14:27 → 5RSO 17:22
PROVIDERS: ADMIT Internal Medicine; ATTEND Hospitalist
DX: K57.32 Diverticulitis of large intestine without perforation or abscess without bleeding (principal); I10 Essential (primary) hypertension; N39.0 Urinary tract infection, site not specified; F41.9 Anxiety disorder, unspecified; Z87.891 Personal history of nicotine dependence
CPT/HCPCS: 36415; 74177; 80053; 81001; 81025; 83690; 83735; 84100; 84145; 85025; 87040; 87086; 93005; 96361; 96365; 96366; 96368; 96375; 96376; 99284; C9113; G0378; J0696; J1885; J2270; J7030; Q9966; Q9967